=== PATIENT | female | born 1990 | race Hispanic/Latino ===

== ENCOUNTER 2019-07-11 15:19 | Outpatient (CLI) | payer BC ==
--- NOTE | 2019-07-11 15:37 | RAD ---
EXAM: Two views chest PROVIDED CLINICAL HISTORY: Positive PPD. COMPARISON: None FINDINGS: Cardiac silhouette and pulmonary vasculature are within normal limits. The lungs are clear. The osse ous structures have a normal appearance. IMPRESSION: 1. No acute cardiopulmonary process. 2. No radiographic findings seen on this chest x-ray to suggest active tuberculosis.
== END 2019-07-11 15:20 | disposition home or self-care (01) ==
LOC: BICRAD 15:19
PROVIDERS: ATTEND Family Medicine
DX: R76.11 Nonspecific reaction to tuberculin skin test without active tuberculosis (principal)
CPT/HCPCS: 71046